=== PATIENT | female | born 1930 | race Caucasian/White ===

== ENCOUNTER → 2019-03-17 | Emergency (ER) | payer OTHER ==
[~2019-03-17] VITALS: Ht 154.9 cm; Wt 59.9 kg
[~2019-03-17] MED LIST: HYOSCYAMINE0.125 M1 SL; INTESTINEX1 CA1 PO; ULTRACET PO
== END | disposition home or self-care (01) ==
LOC: ER 09:34
DX: M54.5 Low back pain (principal)

== ENCOUNTER 2020-05-12 08:37 | Emergency (ER) | payer OTHER ==
[~2020-05-12] VITALS: Ht 154.9 cm; Wt 61.2 kg
== END 2020-05-12 12:16 | disposition home or self-care (01) ==
LOC: ER 08:37
DX: L72.0 Epidermal cyst (principal)

== ENCOUNTER 2021-02-01 22:27 | Inpatient (IN) | payer OTHER ==
[~2021-02-01] VITALS: Ht 162.6 cm; Wt 68.0 kg
== END 2021-02-20 16:25 | disposition home or self-care (01) | DRG 382 ==
LOC: ER 22:27 → MEDI 02-02 17:14
PROVIDERS: ADMIT Internal Medicine; ATTEND Internal Medicine
PROC: 02HV33Z Insertion of Infusion Device into Superior Vena Cava, Percutaneous Approach (ICD-10-PCS; 2021-02-02)
PROC: 3E0F7SF Introduction of Other Gas into Respiratory Tract, Via Natural or Artificial Opening (ICD-10-PCS; 2021-02-02)
PROC: 3E0F7GC Introduction of Other Therapeutic Substance into Respiratory Tract, Via Natural or Artificial Opening (ICD-10-PCS; 2021-02-02)
PROC: BW2110Z Computerized Tomography (CT Scan) of Abdomen and Pelvis using Low Osmolar Contrast, Unenhanced and Enhanced (ICD-10-PCS; 2021-02-03)
PROC: 0DJ08ZZ Inspection of Upper Intestinal Tract, Via Natural or Artificial Opening Endoscopic (ICD-10-PCS; principal; 2021-02-06)
PROC: BW2110Z Computerized Tomography (CT Scan) of Abdomen and Pelvis using Low Osmolar Contrast, Unenhanced and Enhanced (ICD-10-PCS; 2021-02-12)
DX: K31.1 Adult hypertrophic pyloric stenosis (principal); E86.0 Dehydration; D72.828 Other elevated white blood cell count; K31.84 Gastroparesis; K29.60 Other gastritis without bleeding; J45.998 Other asthma; F03.90 Unspecified dementia, unspecified severity, without behavioral disturbance, psychotic disturbance, mood disturbance, and anxiety; E11.40 Type 2 diabetes mellitus with diabetic neuropathy, unspecified; Z79.4 Long term (current) use of insulin; Z53.8 Procedure and treatment not carried out for other reasons; Z20.822 Contact with and (suspected) exposure to COVID-19